=== PATIENT | female | born 1975 | race Caucasian/White ===

== ENCOUNTER 2018-10-26 19:50 | Emergency (ER) | payer OTHER, SELFPAY ==
[2018-10-26 19:54] VITALS: BP 127/74; PULSE 82; RESP 14; TEMP 36.6; O2SAT 98
--- NOTE | 2018-10-26 19:59 | W.ED.GENAD ---
Discharge Plan Disposition Patient Disposition: HOME Condition: Stable Discharge Details Chief Complaint: Sorethroat Clinical Impression: Tonsillitis Primary Care Provider: AmelieLocal ED Provider: Serge Schumacher Home Meds and New Rx's Prescriptions: No Action penicillin V potassium 500 mg tablet 500 mg PO TID 10 Days Qty: 30 RF: 0 Cepacol Sore Throat (aris-men) 15-3.6 mg lozenge 1 bryant MM Q2H PRN (Reason: sore throat) Qty: 16 RF: 0 Discharge Instructions Instructions: Tonsillitis (ED) Additional Instructions: You may continue to take [id number] therapies as needed for discomfort. If your testing turns positive we will contact you. Feel free to return to the emergency department for any new or worsening symptoms. Otherwise follow-up with your primary care provider when you return home if your symptoms are not improving Referrals: Primary Care Provider [Outside] (as needed) Discharge Data Discharge Date/Time-TO BE ENTERED AT DEPARTURE: 10/26/18 20:40 Medical Decision Making Patient presenting the emergency department for chief complaint of sore throat. Patient states that her symptoms began this morning while traveling up to go to [facility]. Patient states that her children have recently been diagnosed with strep throat and similar symptoms. Patient denies any nasal congestion, cough. Patient denies any allergies to medications. Tonsils are erythematous with mild hypertrophy, left anterior cervical lymphadenopathy, otherwise unremarkable exam. No signs of peritonsillar retropharyngeal abscess, epiglottitis, meningitis, plan to perform rapid strep testing due to recent exposure. Rapid strep testing is negative so test was sent for culture. Patient encouraged to use [id number] therapies including Motrin and any sore throat medication to help with her symptoms. Patient informed that we will contact with any positive results and started on antibiotics at that time if needed. After discussion of diagnosis and plan of care patient has no further needs, questions, or concerns and states clear understanding to return to the emergency department for any worsening symptoms. HPI General Mode of arrival: ambulatory. Date/Time Provider Initiated Documentation: 10/26/18 19:55. Limitations to Documentation: no limitations. Information obtained by: patient. History of Present Illness 43 year old F presents to the emergency department with the chief complaint of sore throat, with intensity rated at 6. Quality is described as aching, and is localized to the mouth (sore throat). Patient started experiencing this hour(s) (12) and it has been constant. No relieving factors improve symptom(s), Patient notes no other symptoms.. Related Data Home Medications Medication Instructions Recorded Confirmed benzocaine-menthol [Cepacol Sore 1 bryant MM Q2H PRN #16 each 10/27/18 Throat (aris-men)] penicillin V potassium 500 mg PO TID 10 Days #30 tab 10/27/18 Previous Rx's Medication Instructions Recorded benzocaine-menthol [Cepacol Sore 1 bryant MM Q2H PRN #16 each 10/27/18 Throat (aris-men)] penicillin V potassium 500 mg PO TID 10 Days #30 tab 10/27/18 Allergies Allergy/AdvReac Type Severity Reaction Status Date / Time No Known Allergies Allergy Unverified 10/27/18 09:15 General Stated Complaint: Sorethroat ALEXIS: 4 Review of Systems Constitutional Reports chills, Reports fever(s), Denies headache(s) and Denies malaise ENT Denies change in voice, Denies dysphagia, Denies otalgia, Denies headache(s), Denies hoarseness, Denies lip swelling, Denies mouth lesions, Denies nasal congestion, Reports odynophagia, Reports sore throat, Denies throat swelling and Denies tongue swelling Cardiovascular Denies chest pain Respiratory Denies chest congestion and Denies cough Gastrointestinal Denies dysphagia and Reports odynophagia Neurologic Denies headache(s) Allergic/Immunologic Denies lip swelling, Denies throat swelling and Denies tongue swelling [facility] Social History Smoking/Tobacco Use Status: Current-Occasional Tobacco Type: cigarettes Substance use type: does not use Do you feel safe at home: Yes Do you feel safe in your relationship?: Yes Exam Const General: cooperative, healthy appearing, comfortable, no acute distress and not ill appearing Orientation: alert, awake and oriented x3 HENMT Head: normal to inspection and normocephalic Ears: hearing grossly normal bilaterally, external ears normal, TM's normal bilaterally and mastoids normal General nose exam: external nose normal and nares normal Face and sinus: normal facial exam and sinuses nontender Mouth: oral mucosae normal, lip normal, tongue normal, no audible dysphonia, no drooling and no trismus Throat: uvula midline, abnormal tonsil bilaterally erythema and hypertrophy 2+ and no peritonsillar masses Neck Neck: normal visual inspection, full ROM, no meningeal signs and lymphadenopathy (Left mild anterior) Resp Effort & Inspection: normal respiratory effort, able to speak in complete sentences and no stridor Auscultation: clear to auscultation bilaterally Cardio Rate: regular rate Rhythm: regular rhythm Heart Sounds: S1 normal and S2 normal Skin General skin exam: no rashes or lesions noted Course Vital Signs Temperature 36.6 C 10/26/18 19:54 Pulse 82 10/26/18 19:54 Respiratory Rate 14 10/26/18 19:54 Blood Pressure 127/74 10/26/18 19:54 Pulse Oximetry 98 10/26/18 19:54 Temperature 36.6 C 10/26/18 19:54 Temperature Source Skin 10/26/18 19:54 Pulse 82 10/26/18 19:54 Respiratory Rate 14 10/26/18 19:54 Blood Pressure 127/74 10/26/18 19:54 Blood Pressure Position Sitting 10/26/18 19:54 Pulse Oximetry 98 10/26/18 19:54 Oxygen Delivery Method Room Air 10/26/18 19:54 Oxygen Flow Rate 0 10/26/18 19:54 Pain Level 6 10/26/18 19:54
--- NOTE | 2018-10-26 20:02 | ED.GENADUL_ITS ---
Discharge Plan Disposition Patient Disposition: HOME Condition: Stable Discharge Details Chief Complaint: Sorethroat Clinical Impression: Tonsillitis Primary Care Provider: AmelieLocal ED Provider: Serge Schumacher Home Meds and New Rx's Prescriptions: No Action penicillin V potassium 500 mg tablet 500 mg PO TID 10 Days Qty: 30 RF: 0 Cepacol Sore Throat (aris-men) 15-3.6 mg lozenge 1 bryant MM Q2H PRN (Reason: sore throat) Qty: 16 RF: 0 Discharge Instructions Instructions: Tonsillitis (ED) Additional Instructions: You may continue to take [id number] therapies as needed for discomfort. If your testing turns positive we will contact you. Feel free to return to the emergency department for any new or worsening symptoms. Otherwise follow-up with your primary care provider when you return home if your symptoms are not improving Referrals: Primary Care Provider [Outside] (as needed) Discharge Data Discharge Date/Time-TO BE ENTERED AT DEPARTURE: 10/26/18 20:40 Medical Decision Making Patient presenting the emergency department for chief complaint of sore throat. Patient states that her symptoms began this morning while traveling up to go to [facility]. Patient states that her children have recently been diagnosed with strep throat and similar symptoms. Patient denies any nasal congestion, cough. Patient denies any allergies to medications. Tonsils are erythematous with mild hypertrophy, left anterior cervical lymphadenopathy, otherwise unremarkable exam. No signs of peritonsillar retropharyngeal abscess, epiglottitis, meningitis, plan to perform rapid strep testing due to recent exposure. Rapid strep testing is negative so test was sent for culture. Patient encouraged to use [id number]-gun-[id number] therapies including Motrin and any sore throat medication to help with her symptoms. Patient informed that we will contact with any positive results and started on antibiotics at that time if needed. After discussion of diagnosis and plan of care patient has no further needs, questions, or concerns and states clear understanding to return to the emergency department for any worsening symptoms. HPI General Mode of arrival: ambulatory . Date/Time Provider Initiated Documentation: 10/26/18 19:55 . Limitations to Documentation: no limitations . Information obtained by: patient . History of Present Illness 43 year old F presents to the emergency department with the chief complaint of sore throat, with intensity rated at 6. Quality is described as aching, and is localized to the mouth (sore throat). Patient started experiencing this hour(s) (12) and it has been constant. No relieving factors improve symptom(s), Patient notes no other symptoms.. Related Data Home Medications Medication Instructions Recorded Confirmed benzocaine-menthol [Cepacol Sore 1 bryant MM Q2H PRN #16 each 10/27/18 Throat (aris-men)] penicillin V potassium 500 mg PO TID 10 Days #30 tab 10/27/18 Previous Rx's Medication Instructions Recorded benzocaine-menthol [Cepacol Sore 1 bryant MM Q2H PRN #16 each 10/27/18 Throat (aris-men)] penicillin V potassium 500 mg PO TID 10 Days #30 tab 10/27/18 Allergies Allergy/AdvReac Type Severity Reaction Status Date / Time No Known Allergies Allergy Unverified 10/27/18 09:15 General Stated Complaint: Sorethroat ALEXIS: 4 Review of Systems Constitutional Reports chills, Reports fever(s), Denies headache(s) and Denies malaise ENT Denies change in voice, Denies dysphagia, Denies otalgia, Denies headache(s), Denies hoarseness, Denies lip swelling, Denies mouth lesions, Denies nasal congestion, Reports odynophagia, Reports sore throat, Denies throat swelling and Denies tongue swelling Cardiovascular Denies chest pain Respiratory Denies chest congestion and Denies cough Gastrointestinal Denies dysphagia and Reports odynophagia Neurologic Denies headache(s) Allergic/Immunologic Denies lip swelling, Denies throat swelling and Denies tongue swelling [facility] Social History Smoking/Tobacco Use Status: Current-Occasional Tobacco Type: cigarettes Substance use type: does not use Do you feel safe at home: Yes Do you feel safe in your relationship?: Yes Exam Const General: cooperative, healthy appearing, comfortable, no acute distress and not ill appearing Orientation: alert, awake and oriented x3 HENMT Head: normal to inspection and normocephalic Ears: hearing grossly normal bilaterally, external ears normal, TM's normal bilaterally and mastoids normal General nose exam: external nose normal and nares normal Face and sinus: normal facial exam and sinuses nontender Mouth: oral mucosae normal, lip normal, tongue normal, no audible dysphonia, no drooling and no trismus Throat: uvula midline, abnormal tonsil bilaterally erythema and hypertrophy 2+ and no peritonsillar masses Neck Neck: normal visual inspection, full ROM, no meningeal signs and lymphadenopathy (Left mild anterior) Resp Effort & Inspection: normal respiratory effort, able to speak in complete sentences and no stridor Auscultation: clear to auscultation bilaterally Cardio Rate: regular rate Rhythm: regular rhythm Heart Sounds: S1 normal and S2 normal Skin General skin exam: no rashes or lesions noted Course Vital Signs Temperature 36.6 C 10/26/18 19:54 Pulse 82 10/26/18 19:54 Respiratory Rate 14 10/26/18 19:54 Blood Pressure 127/74 10/26/18 19:54 Pulse Oximetry 98 10/26/18 19:54 Temperature 36.6 C 10/26/18 19:54 Temperature Source Skin 10/26/18 19:54 Pulse 82 10/26/18 19:54 Respiratory Rate 14 10/26/18 19:54 Blood Pressure 127/74 10/26/18 19:54 Blood Pressure Position Sitting 10/26/18 19:54 Pulse Oximetry 98 10/26/18 19:54 Oxygen Delivery Method Room Air 10/26/18 19:54 Oxygen Flow Rate 0 10/26/18 19:54 Pain Level 6 10/26/18 19:54
== END 2018-10-26 20:40 | disposition home or self-care (01) ==
LOC: ER 20:37
PROVIDERS: Emergency Provider Nurse Practitioner Family
DX: J03.90 Acute tonsillitis, unspecified (principal)
CPT/HCPCS: 87880; 99282; 87081

== ENCOUNTER 2018-10-27 08:47 | Emergency (ER) | payer OTHER, SELFPAY ==
[2018-10-27 09:02] VITALS: BP 131/79; PULSE 78; RESP 18; TEMP 36.7; O2SAT 98
--- NOTE | 2018-10-27 09:16 | W.ED.GENAD ---
Discharge Plan Disposition Patient Disposition: HOME Condition: Improving Discharge Details Chief Complaint: Sorethroat Clinical Impression: Exudative pharyngitis Primary Care Provider: Amelie,Local ED Provider: Jose Puente Home Meds and New Rx's Prescriptions: New penicillin V potassium 500 mg tablet 500 mg PO TID 10 Days Qty: 30 RF: 0 Cepacol Sore Throat (aris-men) 15-3.6 mg lozenge 1 bryant MM Q2H PRN (Reason: sore throat) Qty: 16 RF: 0 Discharge Instructions Instructions: Pharyngitis (ED) Additional Instructions: As of October 27 your throat culture from yesterday is pending. As we discussed we will treated with a course of penicillin. May use Cepacol lozenges as prescribed. May continue Tylenol and ibuprofen as needed for pain. Small, frequent sips of fluids and/or popsicles to maintain hydration. Please follow-up with your regular doctor in [place] if not improving in 3-5 days time. Return to the emergency department for any acute concerns while in the area. Medical Decision Making 43-year-old female presents from home with positive strict sick contacts with streptococcal infections in the family. She was seen yesterday and had a negative strep test, her strep culture is pending. She is afebrile and well-appearing with the exception of her oropharynx which is consistent with acute exudative pharyngitis. I will treat with a single dose of dexamethasone for its antiinflammatory properties and a course of penicillin as a feel she does meet criteria for treatment. She will follow-up with primary care in [place] upon her return home, return here for any acute concern HPI General Mode of arrival: ambulatory. Date/Time Provider Initiated Documentation: 10/27/18 08:48. Limitations to Documentation: no limitations. Information obtained by: patient. History of Present Illness 43 year old F presents to the emergency department with the chief complaint of Sore throat worse today, positive strep contacts in home, described as moderate, Quality is described as constant, and is localized to the mouth. Patient reports no radiation. Patient started experiencing this day(s) and it has been constant. No relieving factors improve symptom(s), No exacerbating factors reported . Patient notes denies cough. Patient did receive the following treatments prior to arrival, NSAID Related Data Home Medications Medication Instructions Recorded Confirmed benzocaine-menthol [Cepacol Sore 1 bryant MM Q2H PRN #16 each 10/27/18 Throat (aris-men)] penicillin V potassium 500 mg PO TID 10 Days #30 tab 10/27/18 Previous Rx's Medication Instructions Recorded benzocaine-menthol [Cepacol Sore 1 bryant MM Q2H PRN #16 each 10/27/18 Throat (aris-men)] penicillin V potassium 500 mg PO TID 10 Days #30 tab 10/27/18 Allergies Allergy/AdvReac Type Severity Reaction Status Date / Time No Known Allergies Allergy Unverified 10/27/18 09:15 General Stated Complaint: Sorethroat ALEXIS: 4 Review of Systems Review of Systems 4 systems reviewed and otherwise - [facility] Social History Smoking/Tobacco Use Status: Current-Occasional Tobacco Type: cigarettes Substance use type: does not use Do you feel safe at home: Yes Do you feel safe in your relationship?: Yes Exam Narrative Exam Narrative: GEN: awake, alert, oriented 3. Pleasant, well groomed, interactive. HEAD: Normocephalic, atraumatic ENT: Mucous membranes moist, oropharynx with erythematous tonsillar pillars with overlying white exudate left greater than right. There is no asymmetry, uvula midline, External ear exam unremarkable EYES: PERRL, EOMI NECK: Full ROM, no WILD, no menigismus CHEST/RESP: Nontender, clear to auscultation bilateral, no wheeze/rhonchi/rales CARDIOVASCULAR: RRR, no murmur, rub niels. ABDOMEN: Soft, nontender, no mass EXT: Full ROM, no edema, no rash Neuro: Grossly normal neurologic exam, conversant, interactive. Psych: Speech fluent, thoughts congruent, affect normal Course Vital Signs Temperature 36.7 C 10/27/18 09:02 Pulse 78 10/27/18 09:02 Respiratory Rate 18 10/27/18 09:02 Blood Pressure 131/79 10/27/18 09:02 Pulse Oximetry 98 10/27/18 09:02 Temperature 36.7 C 10/27/18 09:02 Temperature Source Temporal Artery Scan 10/27/18 09:02 Pulse 78 10/27/18 09:02 Respiratory Rate 18 10/27/18 09:02 Blood Pressure 131/79 10/27/18 09:02 Blood Pressure Position Sitting 10/27/18 09:02 Pulse Oximetry 98 10/27/18 09:02 Oxygen Delivery Method Room Air 10/27/18 09:02 Oxygen Flow Rate 0 10/27/18 09:02 Pain Level 8 10/27/18 09:02
--- NOTE | 2018-10-27 09:19 | ED.GENADUL_ITS ---
Discharge Plan Disposition Patient Disposition: HOME Condition: Improving Discharge Details Chief Complaint: Sorethroat Clinical Impression: Exudative pharyngitis Primary Care Provider: Amelie,Local ED Provider: Jose Puente Home Meds and New Rx's Prescriptions: New penicillin V potassium 500 mg tablet 500 mg PO TID 10 Days Qty: 30 RF: 0 Cepacol Sore Throat (aris-men) 15-3.6 mg lozenge 1 bryant MM Q2H PRN (Reason: sore throat) Qty: 16 RF: 0 Discharge Instructions Instructions: Pharyngitis (ED) Additional Instructions: As of October 27 your throat culture from yesterday is pending. As we discussed we will treated with a course of penicillin. May use Cepacol lozenges as prescribed. May continue Tylenol and ibuprofen as needed for pain. Small, frequent sips of fluids and/or popsicles to maintain hydration. Please follow-up with your regular doctor in [place] if not improving in 3-5 days time. Return to the emergency department for any acute concerns while in the area. Medical Decision Making 43-year-old female presents from home with positive strict sick contacts with st reptococcal infections in the family. She was seen yesterday and had a negative strep test, her strep culture is pending. She is afebrile and well-appearing with the exception of her oropharynx which is consistent with acute exudative pharyngitis. I will treat with a single dose of dexamethasone for its antiinflammatory properties and a course of penicillin as a feel she does meet criteria for treatment. She will follow-up with primary care in [place] upon her return home, return here for any acute concern HPI General Mode of arrival: ambulatory . Date/Time Provider Initiated Documentation: 10/27/18 08:48 . Limitations to Documentation: no limitations . Information obtained by: patient . History of Present Illness 43 year old F presents to the emergency department with the chief complaint of Sore throat worse today, positive strep contacts in home, described as moderate, Quality is described as constant, and is localized to the mouth. Patient reports no radiation. Patient started experiencing this day(s) and it has been constant. No relieving factors improve symptom(s), No exacerbating factors reported . Patient notes denies cough. Patient did receive the following treatments prior to arrival, NSAID Related Data Home Medications Medication Instructions Recorded Confirmed benzocaine-menthol [Cepacol Sore 1 bryant MM Q2H PRN #16 each 10/27/18 Throat (aris-men)] penicillin V potassium 500 mg PO TID 10 Days #30 tab 10/27/18 Previous Rx's Medication Instructions Recorded benzocaine-menthol [Cepacol Sore 1 bryant MM Q2H PRN #16 each 10/27/18 Throat (aris-men)] penicillin V potassium 500 mg PO TID 10 Days #30 tab 10/27/18 Allergies Allergy/AdvReac Type Severity Reaction Status Date / Time No Known Allergies Allergy Unverified 10/27/18 09:15 General Stated Complaint: Sorethroat ALEXIS: 4 Review of Systems Review of Systems 4 systems reviewed and otherwise - [facility] Social History Smoking/Tobacco Use Status: Current-Occasional Tobacco Type: cigarettes Substance use type: does not use Do you feel safe at home: Yes Do you feel safe in your relationship?: Yes Exam Narrative Exam Narrative: GEN: awake, alert, oriented 3. Pleasant, well groomed, interactive. HEAD: Normocephalic, atraumatic ENT: Mucous membranes moist, oropharynx with erythematous tonsillar pillars with overlying white exudate left greater than right. There is no asymmetry, uvula midline, External ear exam unremarkable EYES: PERRL, EOMI NECK: Full ROM, no WILD, no menigismus CHEST/RESP: Nontender, clear to auscultation bilateral, no wheeze/rhonchi/rales CARDIOVASCULAR: RRR, no murmur, rub niels. ABDOMEN: Soft, nontender, no mass EXT: Full ROM, no edema, no rash Neuro: Grossly normal neurologic exam, conversant, interactive. Psych: Speech fluent, thoughts congruent, affect normal Course Vital Signs Temperature 36.7 C 10/27/18 09:02 Pulse 78 10/27/18 09:02 Respiratory Rate 18 10/27/18 09:02 Blood Pressure 131/79 10/27/18 09:02 Pulse Oximetry 98 10/27/18 09:02 Temperature 36.7 C 10/27/18 09:02 Temperature Source Temporal Artery Scan 10/27/18 09:02 Pulse 78 10/27/18 09:02 Respiratory Rate 18 10/27/18 09:02 Blood Pressure 131/79 10/27/18 09:02 Blood Pressure Position Sitting 10/27/18 09:02 Pulse Oximetry 98 10/27/18 09:02 Oxygen Delivery Method Room Air 10/27/18 09:02 Oxygen Flow Rate 0 10/27/18 09:02 Pain Level 8 10/27/18 09:02
[2018-10-27] MEDS: Dexamethasone 4 MG TAB 8 MG PO (09:24)
== END 2018-10-27 09:29 | disposition home or self-care (01) ==
LOC: ER 09:28
PROVIDERS: Emergency Provider Emergency Medicine
DX: J02.9 Acute pharyngitis, unspecified (principal)
CPT/HCPCS: 99283; J8540